=== PATIENT | male | born 1985 | race African-American/Black ===

== ENCOUNTER 2018-08-17 18:33 | Emergency (ER) | payer OTHER ==
[2018-08-17] MEDS ORDERED: ALBUTEROL SULFATE HFA (90 MCG/PUFF) 8 GM MDI (1 MDI/ER DISP) IH ONE (23:19)
--- NOTE | 2018-08-17 23:25 | ER Document Report ---
HPI - HPI Patient complains to provider of: persistent cough Time Seen by Provider: 08/17/18 22:36 Pain Level: 3 Context: Well-appearing 33 male with no past medical history presents emergency department for chief complaint of trouble breathing at night while sleeping, persistent cough for 10 days. He says the cough is productive and clear. He said it started with head congestion that got worse when laying down and now it has moved into his chest. He states his fiance told me had to severe coughing fits where she thinks he passed out and had a mild convulsion. He also complains of sore throat due to irritation from the cough. He has tried TheraFlu and Robitussin with no relief. He denies headache or earache. He denies dizziness or lightheadedness. He denies neck stiffness. He denies chest pain. He denies nausea or vomiting or diarrhea. No other complaints. - CONSTITUTIONAL Constitutional: DENIES: Fever, Chills - EENT EENT: DENIES: Sore Throat, Ear Pain, Eye problems - NEURO Neurology: DENIES: Headache, Weakness, Vision blurred, Dizzinesss / Vertigo - CARDIOVASCULAR Cardiovascular: DENIES: Chest pain - RESPIRATORY Respiratory: REPORTS: Trouble Breathing, Coughing - URINARY Urinary: DENIES: Dysuria, Urgency, Frequency - MUSCULOSKELETAL Musculoskeletal: DENIES: Extremity pain Past Medical History - Social History Smoking Status: Current Every Day Smoker Family History: None Patient has suicidal ideation: No Patient has homicidal ideation: No Renal/ Medical History: Denies: Hx Peritoneal Dialysis Vertical Provider Document - CONSTITUTIONAL Notes: PHYSICAL EXAMINATION: Reviewed vital signs and charting by RN GENERAL: Alert, interacts well. No acute distress. HEAD: Normocephalic, atraumatic. EYES: Pupils equal, round, and reactive to light. Extraocular movements intact. ENT: Oral mucosa moist, tongue midline. Mild erythema oropharynx, no exudate, uvula midline NECK: Full range of motion. Supple. Trachea midline. LUNGS: Clear to auscultation bilaterally, mild end expiratory wheezing, rales, or rhonchi. No respiratory distress. HEART: Regular rate and rhythm. No murmur ABDOMEN: soft, non-tender. Non-distended. Bowel sounds present in all 4 quadrants. no McBurney's point tenderness, no Garcia sign. EXTREMITIES: Moves all 4 extremities spontaneously. No edema, No cyanosis. PSYCH: Normal affect, normal mood. SKIN: Warm, dry, normal turgor. No rashes or lesions noted. - INFECTION CONTROL TRAVEL OUTSIDE OF THE [place] IN LAST 30 DAYS: No Course - Re-evaluation Re-evalutation: 08/17/18 23:24 Overall well-appearing with a persistent cough. I will get a chest x-ray. 08/18/18 00:02 Chest x-ray negative for any consolidation or infiltrate. Patient's symptoms most likely consistent with a upper respiratory infection. I have instructed the patient on the use of an inhaler and also that he can use Tylenol for any sinus congestion and Sudafed for any sinus congestion as well safe and stable for discharge. - Vital Signs Vital signs: Temp Pulse Resp BP Pulse Ox 98.3 F 95 20 155/95 H 97 08/17/18 19:22 08/17/18 19:22 08/17/18 19:22 08/17/18 19:22 08/17/18 19:22 Discharge - Discharge Clinical Impression: Cough Upper respiratory infection Qualifiers: URI type: unspecified viral URI Qualified Code(s): J06.9 - Acute upper respiratory infection, unspecified Condition: Good Disposition: HOME, SELF-CARE Additional Instructions: Your symptoms are likely due to a viral infection. The only treatment at this time is supportive care including drinking plenty of fluids, Tylenol 1000 mg every 6 hours and/or ibuprofen 600 mg every 6 hours, as well as an inhaler that you are being sent home with. Your symptoms will likely last for at least another 7-10 days. Please return to the emergency department immediately if you become confused, have persistent vomiting, pass out, have severe headache, or have any other symptoms that are worrisome to you. Follow-up with your primary care doctor in the next several days. Prescriptions: Benzonatate [Tessalon Perles 100 mg Capsule] 100 mg PO Q8HP PRN #40 capsule PRN Reason: Referrals: [facility] [[facility] - Follow up as needed
--- NOTE | 2018-08-18 | RADIOLOGY REPORT (SQ) ---
EXAM DESCRIPTION: XR CHEST 2 VIEWS COMPLETED DATE/TME: 08/17/2018 23:18 CLINICAL HISTORY: 33 years Male, persistent cough COMPARISON: None. NUMBER OF VIEWS/TECHNIQUE: 2, Frontal, Lateral FINDINGS: Adequate lung volume, clear parenchyma, normal cardiac silhouette, and intact bony thorax. IMPRESSION: No acute cardiopulmonary findings.
[2018-08-18 00:16] VITALS: BP 148/90
== END 2018-08-18 00:16 | disposition home or self-care (01) ==
LOC: ER 18:33
DX: J06.9 Acute upper respiratory infection, unspecified (principal); F17.200 Nicotine dependence, unspecified, uncomplicated
CPT/HCPCS: 99283; 71046; J3490

== ENCOUNTER 2018-10-21 00:44 | Emergency (ER) | payer OTHER ==
[2018-10-21 02:12] LABS: ABSOLUTE BASOPHILS # (AUTO) 0.1 10^3/uL (0.0-0.2); ABSOLUTE EOSINOPHILS # (AUTO) 0.2 10^3/uL (0.0-0.6); ABSOLUTE LYMPHOCYTES (AUTO) 0.7 10^3/uL (0.5-4.7); ABSOLUTE MONOCYTES (AUTO) 0.4 10^3/uL (0.1-1.4); BASOPHILS % (AUTO) 0.7 % (0-2); EOSINOPHILS % (AUTO) 1.8 % (0-6); HEMATOCRIT 47.7 % (37.9-51.0); LYMPHOCYTES % (AUTO) 8.7 % (13-45); MEAN CORPUSCULAR HEMOGLOBIN 30.1 pg (27.0-33.4); MEAN CORPUSCULAR HGB CONC 33.5 g/dL (32.0-36.0); MEAN CORPUSCULAR VOLUME 90 fl (80-97); PLATELET COUNT 182 10^3/uL (150-450); RED CELL DISTRIBUTION WIDTH 14.5 % (11.5-14.0); SEGMENTED NEUTROPHILS % (AUTO) 83.8 % (42-78); TOTAL CELLS COUNTED % (AUTO) 100 %; WHITE BLOOD COUNT 8.4 10^3/uL (4.0-10.5)
--- NOTE | 2018-10-21 02:13 | RADIOLOGY REPORT (SQ) ---
EXAM DESCRIPTION: XR CHEST 1 VIEW COMPLETED DATE/TME: 10/21/2018 01:47 CLINICAL HISTORY: 33 years, Male, sob COMPARISON: 08/17/2018 chest NUMBER OF VIEWS: 1 TECHNIQUE: Portable chest LIMITATIONS: None. FINDINGS: Heart size normal. Lungs clear. No pneumothorax IMPRESSION: Negative chest copyright 2010 [employer]- All Rights Reserved
[2018-10-21 02:23] LABS: ANION GAP 10 (5-19); BLOOD UREA NITROGEN 16 mg/dL (7-20); CALCIUM 9.4 mg/dL (8.4-10.2); CARBON DIOXIDE 26 mmol/L (22-30); CHLORIDE 103 mmol/L (98-107); GLUCOSE 95 mg/dL (75-110); POTASSIUM 4.1 mmol/L (3.6-5.0)
[2018-10-21] MEDS ORDERED: IPRATROPIUM/ALBUTEROL 0.5-2.5 MG/3 ML AMPUL NEB ONE (02:26)
[2018-10-21] MEDS ORDERED: METHYLPREDNISOLONE INJ 125 MG/2 ML SDV IV ONE (02:26)
[2018-10-21 02:35] LABS: NT PRO BNP 69 pg/mL (<125)
[2018-10-21 02:36] LABS: TROPONIN I < 0.012 ng/mL
--- NOTE | 2018-10-21 02:59 | ER Document Report ---
ED General - General Chief Complaint: Shortness Of Breath Stated Complaint: DIFFICULTY BREATHING Time Seen by Provider: 10/21/18 01:47 Notes: Patient is a 33-year-old male without chronic medical problems current everyday smoker who presents due to concerns of 2 to 3 days of progressive worsening cough and shortness of breath. Patient states that his symptoms are gradually, have worsened since onset. Has not noted that anything seems to improve or worsen his symptoms. Denies a history of similar symptoms in the past. Regards to symptoms as being moderate to severe in nature. Has not seen his primary care physician regarding today's concerns. Has had a nonproductive cough. Denies fever at home. No history of DVT or pulmonary embolus. Denies chest pain. Denies cardiac history. TRAVEL OUTSIDE OF THE [place] IN LAST 30 DAYS: No - Related Data Allergies/Adverse Reactions: No Known Allergies Allergy (Unverified 02/18/12 09:47) Past Medical History - General Information source: Patient - Social History Smoking Status: Current Every Day Smoker Cigarette use (# per day): Yes - 1/2 pack/day Smoking Education Provided: Yes - Smoking cessation counseling was provided for 4 minutes at the bedside Frequency of alcohol use: None Drug Abuse: None Lives with: Spouse/Significant other Family History: Reviewed & Not Pertinent Patient has suicidal ideation: No Patient has homicidal ideation: No Renal/ Medical History: Denies: Hx Peritoneal Dialysis Review of Systems - Review of Systems Notes: Constitutional: Negative for fever. HENT: Negative for sore throat. Eyes: Negative for visual changes. Cardiovascular: Negative for chest pain. Respiratory: Positive for shortness of breath and cough Gastrointestinal: Negative for abdominal pain, vomiting or diarrhea. Genitourinary: Negative for dysuria. Musculoskeletal: Negative for back pain. Skin: Negative for rash. Neurological: Negative for headaches, weakness or numbness. 10 point ROS negative except as marked above and in HPI. Physical Exam - Vital signs Vitals: Temp Pulse Resp BP Pulse Ox 99.8 F 104 H 20 154/84 H 92 10/21/18 01:07 10/21/18 01:07 10/21/18 01:07 10/21/18 01:07 10/21/18 01:07 Interpretation: Hypertensive, Tachycardic Notes: PHYSICAL EXAMINATION: GENERAL: Appears mildly uncomfortable but in no acute distress HEAD: Atraumatic, normocephalic. EYES: Pupils equal round and reactive to light, extraocular movements intact, sclera anicteric, conjunctiva are normal. ENT: nares patent, oropharynx clear without exudates. Moist mucous membranes. NECK: Normal range of motion, supple without lymphadenopathy LUNGS: Mild tachypnea, scattered expiratory wheezing in all lung andino with globally diminished air movement throughout. Coughing intermittently. HEART: Regular tachycardia without murmurs ABDOMEN: Soft, nontender, normoactive bowel sounds. No guarding, no rebound. No masses appreciated. EXTREMITIES: Normal range of motion, no pitting or edema. No cyanosis. NEUROLOGICAL: No focal neurological deficits. Moves all extremities spontaneously and on command. PSYCH: Normal mood, normal affect. SKIN: Warm, Dry, normal turgor, no rashes or lesions noted. Course - Re-evaluation Re-evalutation: 10/21/18 02:58 Patient presents with findings consistent with an exacerbation of underlying obstructive lung disease either asthma or COPD. Mild wheezing at time of presentation and vitals do show mild hypoxemia at time of presentation. No retractions. Patient did clinically improve after receiving nebulizers here in the emergency department but continued to have intermittent periods where his oxygen would fall below 92%. Chest x-ray without evidence of an acute pneumonia. Patient able to ambulate without any respiratory distress. I do not suspect an acute alternative pathology at this time based on history and exam including acute pulmonary embolus, ACS, pneumothorax, or aortic dissection. Hospitalization was offered and encouraged to the patient as I did inform that he continues to have wheezing, remains moderately tachypneic and his saturations remain borderline on room air between 92 and 94%. After consideration of this recommendation and in conjunction with his the patient did elect to go home on oral steroids and with an albuterol inhaler. Smoking cessation reviewed extensively with the patient. Patient understands the risks of discharge including that he could have deterioration of his respiratory status, could end up having return to the emergency department in a much more serious condition or even have a respiratory arrest. He states that he would like to go home and feels well enough to try management at home. Understands the risks of this approach. Awake, alert, oriented. Conversation held in front of his . At this time will discharge with return precautions and follow-up recommendations. Verbal discharge instructions given a the bedside and opportunity for questions given. Medication warnings reviewed. Patient is in agreement with this plan and has verbalized understanding of return precautions and the need for primary care follow-up in the next 24-72 hours. - Vital Signs Vital signs: Temp Pulse Resp BP Pulse Ox 99.8 F 104 H 20 154/84 H 92 10/21/18 01:07 10/21/18 01:07 10/21/18 01:07 10/21/18 01:07 10/21/18 01:07 - Laboratory Result Diagrams: 10/21/18 02:03 10/21/18 02:03 Laboratory results interpreted by me: 10/21/18 02:03 RDW 14.5 H Seg Neutrophils % 83.8 H Lymphocytes % 8.7 L - Diagnostic Test Radiology reviewed: Image reviewed, Reports reviewed Radiology results interpreted by me: 10/21/18 02:58 Chest x-ray: No acute infiltrate or pneumothorax - EKG Interpretation by Me Additional EKG results interpreted by me: 10/21/18 02:59 Sinus rhythm, rate 96. No ST elevations or depressions. QTC is 410. Discharge - Discharge Clinical Impression: Cough, Wheezing, Shortness of breath, Tobacco abuse Condition: Fair Disposition: HOME, SELF-CARE Additional Instructions: You were seen for with shortness of breath and wheezing. I suspect that you have early COPD from smoking. As we discussed you need to stop smoking immediately to prevent progression of your symptoms. You likely have an associated viral infection. You declined hospitalization today. However, it is very important that you return to the emergency department immediately if you began to have worsening difficulty breathing that does not respond to your inhalers which with you have been sent home. You are also being sent home on a five-day course of steroids that you should start taking tomorrow. Please also follow closely with your primary care physician. you should also return to emergency department if you develop fever greater than 101, persistent cough, persistent vomiting, pass out, or any other symptoms that are concerning to you. Prescriptions: Albuterol Sulfate [Proair HFA Inhalation Aerosol 8.5 gm MDI] 2 puff IH Q4H PRN #1 mdi PRN Reason: Prednisone [Deltasone 20 mg Tablet] 2 tab PO DAILY 5 Days tablet
[2018-10-21] MEDS ORDERED: ALBUTEROL SULFATE 0.083% NEB 2.5 MG/3 ML AMPUL NEB ONE (03:28)
[2018-10-21] MEDS ORDERED: NORMAL SALINE 1000 ML 1,000 ML IV ONE (03:28)
[2018-10-21] MEDS: MAGNESIUM SULFATE/D5W 1 GM/100 ML RTUPB IV SCH ×2 (03:34→04:08)
[2018-10-21] MEDS ORDERED: ALBUTEROL SULFATE HFA (90 MCG/PUFF) 200 PUFF/8.5 GM MDI IH ONE (04:30)
[2018-10-21 05:26] VITALS: BP 147/84
--- NOTE | 2018-10-21 22:21 | EKG REPORT ---
SEVERITY:- NORMAL ECG - SINUS RHYTHM : Confirmed by: Karol Cordova MD 21-Oct-2018 22:20:22
== END 2018-10-21 05:34 | disposition home or self-care (01) ==
LOC: ER 00:44
DX: R06.02 Shortness of breath (principal); R05 Cough; R06.2 Wheezing; R00.0 Tachycardia, unspecified; R09.02 Hypoxemia; F17.210 Nicotine dependence, cigarettes, uncomplicated; Z71.6 Tobacco abuse counseling
CPT/HCPCS: 93005; 99406; 94640 ×2; 99285; 96375; 96365; 96366; 36415; 85025; 80048; 84484; 83880; 71045; 93010; J2930; J3475; J7030; J3490; J7620